=== PATIENT | female | born 1970 | race Caucasian/White ===

== ENCOUNTER → 2021-04-17 14:38 | Outpatient (CLI) | payer BC, SELFPAY ==
--- NOTE | ~2021-04-17 | MM_ITS ---
EXAMINATION: MM screening irma BI w neda HISTORY: Screening TECHNIQUE: Craniocaudal and mediolateral oblique 3-D tomosynthesis images were obtained and synthetic 2-D images were generated. CAD analysis was submitted and interpreted. COMPARISON: No prior mammogram is available for comparison at this institution. BREAST PARENCHYMAL COMPOSITION: Comparison to multiple prior studies sequentially, with oldest review ed study dated 04/10/2013. FINDINGS: Mass in the upper outer quadrant of the left breast has diminished in size over time, consi stent with a benign mass. There is no evidence of suspicious mass, calcification, or architectural di stortion to suggest malignancy in either breast. There has been no suspicious interval change. IMPRESSION: 1. No mammographic evidence of malignancy. 2. Recommend routine screening mammography in one year. BI-RADS Category 2: Benign finding(s). Reviewed, dictated and finalized at location A.
== END ==
PROVIDERS: PCP Internal Medicine; Visit Provider Nurse Practitioner Obstetrics & Gynecology
DX: Z12.31 Encounter for screening mammogram for malignant neoplasm of breast (principal)
CPT/HCPCS: 77063; 77067

== ENCOUNTER 2021-06-02 11:06 | Outpatient (CLI) | payer BC, SELFPAY ==
[2021-06-02 12:16] LABS: Add Urine Microscopic? YES; Appearance Urine Cloudy (Clear); Bilirubin Urine Negative (Negative); Blood Urine Negative (Negative); Color Urine Yellow (Yellow); Glucose Urine UA Negative (Negative); Ketones Urine Negative (Negative); Leukocyte Esterase Ur Negative LEU/UL (Negative); Mucus Urine Rare /lpf; Nitrate Urine Negative (Negative); Protein Urine Negative (Negative); RBC Urine 0-2 /hpf (0-2); Specific Grav Ur 1.021 (1.001-1.035); Squamous Epithelial Cell Urine Occasional /hpf (Few); Urobilinogen Urine Negative mg/dL (<2.0); WBC Urine 0-3 /hpf
== END 2021-06-02 11:07 | disposition home or self-care (01) ==
LOC: ANHLAB 11:10
PROVIDERS: PCP Internal Medicine; Visit Provider Internal Medicine
DX: R30.0 Dysuria (principal)
CPT/HCPCS: 81001

== ENCOUNTER 2022-07-27 08:57 | Outpatient (CLI) | payer BC, SELFPAY ==
--- NOTE | ~2022-07-27 | CT_ITS ---
EXAMINATION: CT brain wo con DATE: 07/27/2022 09:14 INDICATION: Headaches TECHNIQUE: Computed tomography (CT) of the head was performed without intravenous contrast. Sagittal and coronal reconstructions were performed. The mA was adjusted according to patient size. Iterative reconstruction technique was employed. The dose-length product was 605.33 mGy-cm. COMPARISON: head CT dated 05/18/2005 and brain MR dated 05/29/2019 FINDINGS: No acute intracranial hemorrhage, acute infarction or abnormal extra axial fluid collection. Ventricl es are normal and symmetric. No mass/mass effect. The orbits, paranasal sinuses and mastoid air cells are normal. IMPRESSION: 1. Normal head CT. Reviewed, dictated and finalized at location B. IMPRESSION: 1. Normal head CT.
== END 2022-07-27 08:58 | disposition home or self-care (01) ==
PROVIDERS: PCP Internal Medicine; Visit Provider Internal Medicine
DX: R51.9 Headache, unspecified (principal)
CPT/HCPCS: 70450

== ENCOUNTER → 2022-07-27 09:27 | Outpatient (CLI) | payer BC, SELFPAY ==
--- NOTE | ~2022-07-27 | MM_ITS ---
EXAMINATION: MM screening irma BI w neda HISTORY: Screening TECHNIQUE: Craniocaudal and mediolateral oblique 3-D tomosynthesis images were obtained and synthetic 2-D images were generated. CAD analysis was submitted and interpreted. COMPARISON: Comparison to multiple prior studies sequentially, with oldest reviewed study dated 02/01. BREAST PARENCHYMAL COMPOSITION: The breasts are heterogeneously dense, which may obscure small masses FINDINGS: No significant interval change to fat-containing mass in the upper outer quadrant of the le ft breast. No new masses, suspicious calcifications or architectural distortion. IMPRESSION: 1. No mammographic evidence of malignancy. 2. Recommend routine screening mammography in one year. BI-RADS Category 2: Benign finding(s). Reviewed, dictated and finalized at location A.
== END ==
PROVIDERS: PCP Internal Medicine; Visit Provider Nurse Practitioner Obstetrics & Gynecology
DX: Z12.31 Encounter for screening mammogram for malignant neoplasm of breast (principal)
CPT/HCPCS: 77063; 77067

== ENCOUNTER 2022-08-31 00:33 | Day surgery (SDC) | payer BC, SELFPAY ==
[2022-08-20 14:38] VITALS: BMI 21.4
[2022-08-31 06:42] VITALS: BP 118/71; PULSE 65; RESP 16; TEMP 35.8; O2SAT 100; BMI 22.4
[2022-08-31] MEDS: LACTATED RINGERS 1,000 ML 150 ML IV CONT (06:52)
--- NOTE | 2022-08-31 07:33 | P.PNAN_ITS ---
Anes - Initial Pre Proc Eval Procedure: Operation Date: 08/31/22 08:00 Proposed Procedures p Screening Colonoscopy - Juan Jose Maloney MD Date/Time: 08/31/22 07:33 Surgeon: Juan Jose Maloney MD Pre Op Diagnosis: neoplasm screening Patient Data Age: 52 Gender: F Height: 1.7 m Weight: 64.9 kg Last Vital Signs Temp 96.5 F L 08/31/22 06:42 Pulse 65 08/31/22 06:42 Resp 16 08/31/22 06:42 BP 118/71 08/31/22 06:42 Pulse Ox 100 08/31/22 06:42 O2 Del Method Room Air 08/31/22 06:42 Allergies Allergy/AdvReac Type Severity Reaction Status Date / Time acetaminophen Allergy Severe FLUSHED, Verified 08/31/22 06:40 RED, BURNING SKIN lidocaine Allergy Itching Verified 08/31/22 06:40 NFA Allergy Unknown Unknown Uncoded 08/31/22 06:40 Home Medications Medication Instructions Recorded Confirmed Type sumatriptan 20 mg/actuation nasal 20 mg intranasal .COMPLEX #6 ea 10/15/21 08/31/22 Rx spray fluticasone propionate 50 2 spray intranasal DAILY PRN nasal 03/01/22 08/31/22 Rx mcg/actuation nasal congestion #15.8 mL spray,suspension buspirone 5 mg tablet 5 mg PO BID #60 tabs 07/06/22 08/31/22 Rx lorazepam 0.5 mg tablet 0.5 mg PO BID PRN anxiety #40 tabs 07/06/22 08/31/22 Rx cetirizine 10 mg tablet (Zyrtec) 10 mg PO DAILY 08/20/22 08/31/22 History amoxicillin 875 mg-potassium 1 tablet PO BID #20 tabs 08/26/22 08/31/22 Rx clavulanate 125 mg tablet Patient hx anesthesia problems: none Family hx anesthesia problems: none Results Review: All pre-operative results and documents have been reviewed as part of the pre- operative evaluation. PMFSH Family History Family History Father Hypertension Social History Social History Years smoked: 30 Smoking status: Current every day smoker Tobacco type: cigarettes Second hand tobacco smoke exposure: No Alcohol intake: never Living arrangements: alone Anes - Eval Final PreProcedure Day of Procedure 08/31/22 07:33 Patient weight: normal Heart: regular rate and rhythm Lungs: clear to auscultation Airway: Mallampati scale class II Neurological: alert and oriented Last oral intake: >/= 8 hours ASA classification: II Emergent: no Anesthetic plan: proceed Anesthesia type and monitoring: general GIVS and standard monitoring Results Review: All pre-operative results and documents have been reviewed as part of the pre- operative evaluation. Informed Consent: The patient's anesthetic plan and its attendant risks and benefits were discussed with the patient/family/POA. Questions were solicited and answers provided to the satisfaction of the patient/family/POA.
--- NOTE | 2022-08-31 07:51 | PM.HPGS ---
History of Present Illness History of Present Illness Consent: Risks, benefits, and alternatives have been discussed and questions answered. Patient agrees to proceed with procedure. Chief complaint: neoplasm screening Narrative: Alicia Duran is a 52 year old female here for first screening colonoscopy Review of Systems Constitutional: Constitutional: Denies headache(s) and Denies weakness Eyes: Eyes: Denies blurry vision ENT: Reports Normal hearing present, Denies headache(s) and Denies neck pain Cardiovascular: Cardiovascular: Denies chest pain and Denies dyspnea Respiratory: Respiratory: Denies dyspnea Gastrointestinal: Gastrointestinal: Reports no additional gastrointestinal complaints Genitourinary: Genitourinary: Denies dysuria Musculoskeletal: Musculoskeletal: Denies neck pain Integumentary/Breasts: Skin/Breast: Denies dry skin Neurologic: Reports Normal hearing present, Denies headache(s) and Denies weakness Psychiatric: Psychiatric: Denies anxiety Endocrine: Endocrine: Denies change in body appearance Hematologic/Lymphatic: Hematologic/Lymphatic: Denies easy bleeding Allergic/Immunologic: Allergic/Immunologic: Denies urticaria [facility] Past Medical History Medical History (Updated 08/31/22 @ 07:51 by Juan Jose Maloney MD) Colon cancer screening Family History Family History Father Hypertension Social History Social History Years smoked: 30 Smoking status: Current every day smoker Tobacco type: cigarettes Second hand tobacco smoke exposure: No Alcohol intake: never Living arrangements: alone Meds Home Medications and Allergies Home Medications Medication Instructions Recorded Confirmed Type sumatriptan 20 mg/actuation nasal 20 mg intranasal .COMPLEX #6 ea 10/15/21 08/31/22 Rx spray fluticasone propionate 50 2 spray intranasal DAILY PRN nasal 03/01/22 08/31/22 Rx mcg/actuation nasal congestion #15.8 mL spray,suspension buspirone 5 mg tablet 5 mg PO BID #60 tabs 07/06/22 08/31/22 Rx lorazepam 0.5 mg tablet 0.5 mg PO BID PRN anxiety #40 tabs 07/06/22 08/31/22 Rx cetirizine 10 mg tablet (Zyrtec) 10 mg PO DAILY 08/20/22 08/31/22 History amoxicillin 875 mg-potassium 1 tablet PO BID #20 tabs 08/26/22 08/31/22 Rx clavulanate 125 mg tablet Allergies Allergy/AdvReac Type Severity Reaction Status Date / Time acetaminophen Allergy Severe FLUSHED, Verified 08/31/22 06:40 RED, BURNING SKIN lidocaine Allergy Itching Verified 08/31/22 06:40 NFA Allergy Unknown Unknown Uncoded 08/31/22 06:40 Vital Signs Vital Signs - 24 hr 08/31/22 06:42 Temperature 96.5 F L Pulse Rate 65 Respiratory Rate 16 Blood Pressure 118/71 Pulse Oximetry 100 Oxygen Delivery Room Air Exam Const: General: comfortable and no acute distress HENMT: Face/Nose/Sinus: Normal nares present Eyes: General: appearance normal, both eyes and all related structures Neck: Neck: no JVD Resp: Auscultation: clear to auscultation bilaterally Cardio: Rate: regular rate Rhythm: regular rhythm GI: Inspection: non-distended GI Palp: Yes Soft to palpation Skin: General skin exam: normal color Neuro: General: gait normal Speech: normal speech Extrem: General: normal to inspection Psych: Mental Status: mental status grossly normal Assessment and Plan Assessment and plan (1) Colon cancer screening: Code(s): Z12.11 - Encounter for screening for malignant neoplasm of colon Status: Acute Assessment and Plan: colonoscopy
[2022-08-31 08:13] VITALS: BP 109/71; PULSE 76; RESP 24; O2SAT 98
[2022-08-31 08:23] VITALS: BP 138/80; PULSE 74; RESP 16; O2SAT 97
[2022-08-31 08:33] VITALS: BP 120/70; PULSE 64; RESP 16; O2SAT 99
== END 2022-08-31 08:45 | disposition home or self-care (01) ==
PROVIDERS: PCP Internal Medicine; Visit Provider Internal Medicine Gastroenterology
PROC: 0DJD8ZZ Inspection of Lower Intestinal Tract, Via Natural or Artificial Opening Endoscopic (ICD-10-PCS; CPT 45378; principal; 2022-08-31 08:00)
DX: Z12.11 Encounter for screening for malignant neoplasm of colon (principal); K57.30 Diverticulosis of large intestine without perforation or abscess without bleeding; K64.8 Other hemorrhoids; F17.210 Nicotine dependence, cigarettes, uncomplicated
CPT/HCPCS: 45378; J2704; J7120

== ENCOUNTER 2023-04-12 08:08 | Outpatient (CLI) | payer BC, SELFPAY ==
--- NOTE | ~2023-04-12 | US_ITS ---
EXAMINATION: US pelvic complete DATE: 04/12/2023 09:15 INDICATION: Pelvic and perineal pain TECHNIQUE: Multiple transabdominal and endovaginal sonographic images of the pelvis were obtained. COMPARISON: None. FINDINGS: The uterus is surgically absent. The right ovary is not visualized however no right adnexal abnormality is seen. The left ovary measures 1.1 x 0.9 x 0.8 cm. There is normal vascular flow in th e left ovary. There is no free fluid in the pelvis. IMPRESSION: 1. No sonographic correlate for the patient's symptoms. Reviewed, dictated and finalized at location []
--- NOTE | ~2023-04-12 | US_ITS ---
Abdominal Sonogram: Real-time sonographic imaging of the abdomen was performed. Clinical History: Flank pain Findings: The liver appears normal with no evidence of mass lesion or bile duct dilatation. Main por francisco j vein demonstrates normal direction of flow. The spleen is normal in size without evidence of foca l lesion. The gallbladder is absent, compatible prior cholecystectomy. The common bile duct measures 5 mm. The visualized pancreas, aorta, and IVC are unremarkable. The right kidney measures 11.6 cm in length and the left kidney measures 12.1 cm. There is no hydronephrosis or renal calculus. Impression: Status post cholecystectomy, otherwise unremarkable abdominal ultrasound. Reviewed, dictated and finalized at location . Impression: Status post cholecystectomy, otherwise unremarkable abdominal ultrasound.
== END 2023-04-12 08:09 | disposition home or self-care (01) ==
PROVIDERS: PCP Internal Medicine; Visit Provider Nurse Practitioner Obstetrics & Gynecology
DX: R10.2 Pelvic and perineal pain (principal); Z90.49 Acquired absence of other specified parts of digestive tract
CPT/HCPCS: 76700; 76856

== ENCOUNTER 2023-08-25 13:06 | Outpatient (CLI) | payer BC, SELFPAY ==
--- NOTE | 2023-08-25 14:30 | NEURO_ITS ---
Impression: # Complains of numbness of hands. # No Carpal Tunnel Syndrome or ulnar neuropathy. # Normal needle/EMG exam. # Clinical correlation recommended. Nerve Conduction Studies Anti Sensory Summary Table Stim Site NR Peak (ms) P-T Amp (?V) Site1 Site2 Delta-P (ms) Dist (cm) Kalen (m/s) Left Median Anti Sensory (2-3nd Digit) Wrist 2.7 75.2 Wrist 2-3nd Digit 2.7 14.0 52 Wrist 2.8 67.4 Wrist 2-3nd Digit 2.7 14.0 52 Right Median Anti Sensory (2-3nd Digit) Wrist 2.6 51.5 Wrist 2-3nd Digit 2.6 14.0 54 Wrist 2.6 59.9 Wrist 2-3nd Digit 2.6 14.0 54 Left Radial Anti Sensory (Base 1st Digit) Wrist 2.6 34.0 Wrist Base 1st Digit 2.6 0.0 Right Radial Anti Sensory (Base 1st Digit) Wrist 2.2 30.7 Wrist Base 1st Digit 2.2 0.0 Left Ulnar Anti Sensory (5th Digit) Wrist 2.4 47.3 Wrist 5th Digit 2.4 14.0 58 Right Ulnar Anti Sensory (5th Digit) Wrist 2.3 54.0 Wrist 5th Digit 2.3 14.0 61 Motor Summary Table Stim Site NR Onset (ms) O-P Amp (mV) Site1 Site2 Delta-0 (ms) Dist (cm) Kalen (m/s) Left Median Motor (Abd Poll Brev) Wrist 3.1 4.4 Elbow Wrist 4.8 29.0 60 Elbow 7.9 6.7 Right Median Motor (Abd Poll Brev) Wrist 3.1 4.0 Elbow Wrist 4.4 26.0 59 Elbow 7.5 2.9 Left Ulnar Motor (Abd Dig Minimi) Wrist 2.1 8.0 A Elbow Wrist 4.8 28.0 58 A Elbow 6.9 7.3 Right Ulnar Motor (Abd Dig Minimi) Wrist 2.1 8.0 A Elbow Wrist 4.8 28.0 58 A Elbow 6.9 7.8 F Wave Studies NR F-Lat (ms) L-R F-Lat (ms) Left Median (Mrkrs) (Abd Poll Brev) 25.80 0.52 Right Median (Mrkrs) (Abd Poll Brev) 26.32 0.52 Left Ulnar (Mrkrs) (Abd Dig Min) 26.68 0.32 Right Ulnar (Mrkrs) (Abd Dig Min) 26.36 0.32 EMG Side Muscle Nerve Root Ins Act Fibs Amp Dur Recrt Comment Right 1stDorInt Ulnar C8-T1 Nml Nml Nml Nml Nml Right Ext Indicis Radial (Post Int) C7-8 Nml Nml Nml Nml Nml Right Ext Digitorum Radial (Post Int) C7-8 Nml Nml Nml Nml Nml Right BrachioRad Radial C5-6 Nml Nml Nml Nml Nml Right PronatorTeres Median C6-7 Nml Nml Nml Nml Nml Right Abd Poll Brev Median C8-T1 Nml Nml Nml Nml Nml Left 1stDorInt Ulnar C8-T1 Nml Nml Nml Nml Nml Left Ext Indicis Radial (Post Int) C7-8 Nml Nml Nml Nml Nml Left Ext Digitorum Radial (Post Int) C7-8 Nml Nml Nml Nml Nml Left BrachioRad Radial C5-6 Nml Nml Nml Nml Nml Left PronatorTeres Median C6-7 Nml Nml Nml Nml Nml Left Abd Poll Brev Median C8-T1 Nml Nml Nml Nml Nml MTDD
== END 2023-08-25 13:07 | disposition home or self-care (01) ==
PROVIDERS: PCP Internal Medicine; Visit Provider Internal Medicine
DX: R20.2 Paresthesia of skin (principal)
CPT/HCPCS: 95886; 95911

== ENCOUNTER → 2023-09-06 11:37 | Outpatient (CLI) | payer BC, SELFPAY ==
--- NOTE | ~2023-09-06 | MM_ITS ---
EXAMINATION: MM screening irma BI w neda HISTORY: Screening mammogram TECHNIQUE: Craniocaudal and mediolateral oblique 3-D tomosynthesis images were obtained and synthetic 2-D images were generated. CAD analysis was submitted and interpreted. COMPARISON: 07/27/2022, 04/17/2021 bilateral screening mammogram examinations BREAST PARENCHYMAL COMPOSITION: The breasts are heterogeneously dense, which may obscure small masses . FINDINGS: There are 2 biopsy markers on the right; history of 2 prior benign right breast biopsies. T here is no evidence of suspicious mass, calcification, or architectural distortion to suggest maligna ncy in either breast. There has been no suspicious interval change. IMPRESSION: 1. No mammographic evidence of malignancy. 2. Recommend routine screening mammography in one year. BI-RADS Category 2: Benign finding(s). Reviewed, dictated and finalized at location A. SER TENDER
== END ==
PROVIDERS: PCP Nurse Practitioner Obstetrics & Gynecology; Visit Provider Nurse Practitioner Obstetrics & Gynecology
DX: Z12.31 Encounter for screening mammogram for malignant neoplasm of breast (principal)
CPT/HCPCS: 77063; 77067

== ENCOUNTER 2024-09-11 13:58 | Outpatient (CLI) | payer BC, SELFPAY ==
--- NOTE | ~2024-09-11 | MM_ITS ---
EXAMINATION: MM screening irma BI w neda HISTORY: Screening TECHNIQUE: Craniocaudal and mediolateral oblique 3-D tomosynthesis images were obtained and synthetic 2-D images were generated. CAD analysis was submitted and interpreted. COMPARISON: Comparison to multiple prior studies sequentially, with oldest reviewed study dated 02/01. BREAST PARENCHYMAL COMPOSITION: Not dense: There are scattered areas of fibroglandular density. FINDINGS: Stable benign-appearing bilateral breast masses. There is no evidence of suspicious mass, c alcification, or architectural distortion to suggest malignancy in either breast. There has been no s uspicious interval change. IMPRESSION: 1. No mammographic evidence of malignancy. 2. Recommend routine screening mammography in one year. BI-RADS Category 2: Benign finding(s). Reviewed, dictated and finalized at location B. UBER
== END 2024-09-11 13:59 | disposition home or self-care (01) ==
LOC: MICIMG 14:00
PROVIDERS: PCP Physician Assistant; Visit Provider Obstetrics & Gynecology
DX: Z12.31 Encounter for screening mammogram for malignant neoplasm of breast (principal)
CPT/HCPCS: 77063; 77067